=== PATIENT | female | born 1980 | race Caucasian/White ===

== ENCOUNTER 2021-05-11 23:27 | Emergency (ER) | payer BC ==
[~2021-05-11] VITALS: Ht 190.5 cm; Wt 150.0 kg
[2021-05-12 00:18] VITALS: BP 190/88
[2021-05-12] MEDS ORDERED: OXYC1TAB15 PO ×2 (00:24→00:26)
[2021-05-12] MEDS ORDERED: AMOX1TAB61 PO (00:24)
--- NOTE | 2021-05-12 00:26 | PHYS DOC ---
Adult General Chief Complaint Chief Complaint: DENTAL PROBLEM HPI HPI The patient is a 40-year-old female with a history of hypertension and diabetes on oral agents. She presents for evaluation of dental discomfort with onset over the last 1 day. Discomfort localizes to a fractured and necrotic left pos terior mandibular molar. No fevers, no nausea or vomiting, no trismus, no pain or swelling to the floor of the mouth or elevation of the tongue, no submental swelling, no change in voice, trouble swallowing, shortness of breath. Patient is alert and pleasantly and appropriately interactive and in no acute distress but in some discomfort due to dental pain upon initial evaluation here in the emergency department. She plans to follow-up with her dentist later in the morning. Blood pressure is somewhat high, likely due to acute dental discomfort. Review of Systems Review of Systems A 12 point review of systems was completed and was negative except where noted in HPI above. Current Medications Current Medications Current Medications Medications (Trade) Dose Ordered Sig/Rola Start Time Stop Time Status Last Admin Dose Admin Amoxicillin/ Clavulanate Potassium (Augmentin 875/ 125mg) 1 tab 1X ONCE 05/12/21 00:30 05/12/21 00:31 DC 05/12/21 00:06 1 TAB Bupivacaine HCl (Sensorcaine Mpf 0.5%) 30 ml 1X ONCE 05/12/21 00:30 05/12/21 00:31 DC 05/12/21 00:16 30 ML Lidocaine/ Epinephrine (LIDOCAINE 1%-EPI 1:100,000 Multi-Dose) 20 ml 1X ONCE 05/12/21 00:30 05/12/21 00:31 DC 05/12/21 00:16 20 ML Oxycodone/ Acetaminophen (Percocet 10/325) 1 tab 1X ONCE 05/12/21 00:30 05/12/21 00:31 DC 05/12/21 00:06 1 TAB Allergies Allergies Allergies Coded Allergies Type Severity Reaction Last Updated Verified No Known Drug Allergies 05/11/21 No Physical Exam Physical Exam Middle-aged female appearing nontoxic and in no acute distress. Head is normocephalic and atraumatic. Neck is supple and nontender. Oropharynx is moist. There is mild gingival swelling, erythema and tenderness in association with a fractured and necrotic left posterior mandibular molar. No trismus, trouble with secretions, change in voice, shortness of breath. Lungs are clear to auscultation at all stations. There is a normal S1 and S2 without rubs or gallops and capillary refill is appropriate, less than 2 seconds globally. Abdomen is soft, nontender and nondistended. Skin is warm and dry without cyanosis, clubbing or edema. Psychiatrically, the patient demonstrates appropriate mood and affect and is alert. Current Patient Data Vital Signs Vital Signs Date Time Temp Pulse Resp B/P (MAP) Pulse Ox O2 Delivery O2 Flow Rate FiO2 05/12/21 00:06 24 97 Room Air EKG EKG [] Radiology/Procedures Radiology/Procedures Inferior alveolar nerve block procedure; long 25-gauge needle used to instill a mixture of 1% lidocaine with epinephrine and 0.5% bupivacaine with epinephrine around the inferior alveolar nerve, in standard fashion. Patient tolerated the procedure well and had complete relief of her dental discomfort with the injection. Course & Med Decision Making Course & Med Decision Making Inferior alveolar nerve block completed by me as per procedure note. Patient tolerated well and had complete relief of dental discomfort. Started on Augmentin and will prescribe Augmentin and a short course of pain medication. Patient is to follow-up with her dentist later today as already planned. She understands that if she feels worse instead of better or develops other new symptoms of concern that she will need to return to the emergency department immediately for reevaluation. All questions are answered. Dragon Disclaimer Dragon Disclaimer This electronic medical record was generated, in whole or in part, using a voice recognition dictation system. Departure Departure Impression: Primary Impression: Dental infection Disposition: HOME / SELF CARE / HOMELESS Condition: IMPROVED Referrals: BRENNEN MCGRATH MD (PCP) Patient Instructions: Dental Caries Additional Instructions: Follow-up very closely with your dentist later this morning as already scheduled for a reevaluation of your symptoms and a discussion of next best steps in care. You may take a Percocet pill every 6 hours as needed for severe pain. Take the Augmentin antibiotic twice a day as prescribed to treat your dental i nfection. Return to the emergency department right away for worsening symptoms of any kind or with any other new symptoms of concern. Scripts Oxycodone/Apap 5-325 (PERCOCET 5-325 MG TABLET ) 1 Each Tablet 1 TAB PO PRN Q6HRS PRN for PAIN, #9 TAB 0 Refills Prov: CALI FIELDS MD 05/12/21 Amoxicillin/Potassium Clav (AUGMENTIN 875-125 TABLET) 1 Each Tablet 1 TAB PO Q12HR for 10 Days, #20 TAB Prov: CALI FIELDS MD 05/12/21 CALI FIELDS MD May 12, 2021 00:26
[2021-05-12] MEDS ORDERED: BUPIVACAINE MPF 0.5% 30 ML VIAL. INJ ONE (00:30)
[2021-05-12] MEDS ORDERED: AMOXICILLIN/K CLAV 875/125MG TABLET. PO ONE (00:30)
[2021-05-12] MEDS ORDERED: oxyCODONE/APAP 10/325 1 TAB TABLET PO ONE (00:30)
[2021-05-12] MEDS ORDERED: LIDOCAINE 1%/EPI 1:100,000 20 ML VIAL. INJ ONE (00:30)
== END 2021-05-12 00:47 | disposition home or self-care (01) ==
LOC: ER 23:27
DX: K04.7 Periapical abscess without sinus (principal); E11.9 Type 2 diabetes mellitus without complications; I10 Essential (primary) hypertension
CPT/HCPCS: 64400; 99284; J3490